=== PATIENT | male | born 1965 | race Caucasian/White ===

== ENCOUNTER 2022-02-25 12:08 | Outpatient (CLI) | payer BC, SELFPAY ==
--- NOTE | 2022-03-31 08:39 | CER_ITS ---
Date of service: 03/31/22 Time of Service: 08:39 Cardiac Event Recorder Referring Provider:: Milton Norman Indications:: Palpitations Cardiac Event Note: This is a 14-day youth nutritional monitor, ordered for palpitations. Predominant rhythm was sinus with an average heart rate of 73. Minimum was 39, maximum 146 There were very rare atrial premature beats There were very rare premature ventricular beats There was no atrial fibrillation, no high-grade AV block, no pauses greater than 3 seconds Brief Mobitz 1 second-degree AV block (Wenckebach) was noted during sleep, asymptomatic Patient symptoms were reported. These corresponded to sinus rhythm
== END 2022-02-25 12:09 | disposition home or self-care (01) ==
LOC: RT 03-10 12:08
PROVIDERS: Visit Provider Neuromusculoskeletal Medicine & OMM
DX: R00.2 Palpitations (principal)
CPT/HCPCS: 93246

== ENCOUNTER 2022-02-25 14:24 | Outpatient (CLI) | payer BC, SELFPAY ==
--- NOTE | 2022-02-25 09:00 | ETT_ITS ---
APPROVED REPORT Exam: Exercise Treadmill Patient Location: Out-Patient Room/Bed: Stress Nurse: Madelyn Marshall RN Ordering Provider:LIZ TOVAR, Contact Number: [phone] BMI: 31.37 Baseline Rhythm: Sinus Rhythm Indications: Atypical chest pain Medical History Medical History: Hypertension, prediabetes, obesity, arthritis in hip Cardiac Medications: None Allergies: NKA Cardiac Risk Factors: Hypertension, prediabetes, smoker (former), obesity, family hx Previous Cardiac Procedures: None Pretest Chest Pain Characteristics: None Exercise History: Indeterminate Physical Disabilities: None Lung Sounds: Clear to auscultation Heart Sounds: Regular Stress Test Details Test: Exercise stress testing was performed using a Jameson protocol. Rest Stress HR Resting HR Supine: 68 bpm Max Heart Rate (APMHR): 166 bpm Resting HR Standin bpm Target HR (85% APMHR): 141 bpm Max HR Achieved: 174 bpm % of APMHR: 104 Recovery HR: 99 bpm HR response to stress: Normal HR response to stress BP Resting BP Supine: 140/88 mmHg Resting BP Standin/78 mmHg Max BP: 186/88 mmHg Recovery BP: 130/72 mmHg BP response to stress: Normal blood pressure response to stress. ECG Resting ECG: Sinus Rhythm Ectopy: None Stress ECG: Sinus Tachycardia ST Change: No significant ST segment changes noted Arrhythmia: Occasional multifocal PVCs Comment: Increasing ectopy towards end of exercise Recovery ECG: Sinus Rhythm Recovery ST Change: No significant ST segment changes noted Recovery Arrhythmia: Rare PVCs Clinical Reason for Termination: Stopped by RN, 104% THR achieved Stress Symptoms: General Fatigue Exercise duration: 12 min49 sec Highest Stage Reached: Stage 5: 5.0 mph at 18% grade. Exercise capacity: 14.02 METs Winn Treadmill Score: 11.5 Rate Pressure Product: 43892 Stress ECG Conclusion 1. The resting electrocardiogram was within normal limits 2. Patient exercised on the Jameson protocol and completed a workload of 14.02 METS, stopping due to fa tigue 3. Normal heart rate and blood pressure response to exercise. The patient achieved greater than 100% of predicted heart rate for age 4. There was no electrocardiographic evidence of myocardial ischemia 5. There were no significant dysrhythmias Winn Treadmill Score is 11.5 which is Low risk. Stress Test Summary STAGE Time (mins) Speed (mph) Grade (%) HR BP SYMPTOMS METS Supine 68 140/88 Standing 87 132/78 SpO2 98% 1 3 1.7 10 113 154/78 SpO2 97% 4.6 2 6 2.5 12 129 154/80 SpO2 96% 7 3 9 3.4 14 152 SpO2 95% 10.2 4 12 4.2 16 174 SpO2 95% 12.9 1 min recovery 174 178/72 SpO2 96% 3 min recovery 119 186/88 SpO2 97% 6 min recovery 99 130/72 SpO2 98%
--- OUTSIDE RECORDS SUMMARY | 2022-02-26 14:27 | XMS_ITS ---
:1965 Author Care Team Providers Name Role Phone LIZ TOVAR Primary Care Provider [phone] Allergies Code Code System Name Reaction Severity Status Onset Shellfish Other Mild to Active Derived Moderate 1 115953 RxNorm Shrimp Other Mild to Deactivated ? Moderate NKDA ? Medications Name Status Start Date Stop Date ? ? Aerosol Holding Chamber Completed 01/16/2017 07/22/20 17 1 (one) Misc Misc: daily, as needed amitriptyline 25 mg tablet Completed 07/22/201701/27 1 (one) Tablet Tablet: qhs - at bedtime benzonatate 100 mg capsule Completed ? 07/21 buspirone 10 mg tablet Completed ? 1 buspirone 5 mg tablet Active ? Not availa ble cefpodoxime 200 mg tablet Completed 01/19/20172016 1 (one) Tablet: two times daily clonazepam 1 mg tablet Completed ? 1 hydrocodone 5 mg-acetaminophen 325 mg tablet Completed 10/10/2015 1 (one) Tablet Tablet: Every 4 to 6 hours as needed ipratropium 0.5 mg-albuterol 3 mg (2.5 mg base)/3 mL n ebulization soln Completed 01/19/2017 07/22/2017 1 (one) Vial: four times daily metoprolol succinate ER 25 mg tablet,extended release 24 hr Completed 10/10/2015 01/16/2017 1 (one) Tablet ER 24HR: daily penicillin V potassium 500 mg Completed ? tablet prednisone 10 mg tablet Completed ? 07/21/20 18 Zithromax TRI-KIRAN 500 mg tablet Completed 01/11/2007 01/14/2007 1 Tablet: Daily Problems Name Status Onset Date Source ? 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 History Melanocytic Nevus Active ? History Anxiety Disorder Active ? History Fraser's Palsy Active ? History Varicose Veins of Lower Extremity Active ? History Acute Bronchitis Unknown ? History Disorder of Nasal Cavity Active ? History Pneumonia Active ? History Disorder of Jaw Active ? History Contact Dermatitis Active ? History Hypertrophic Scar Active ? History Cough Unknown ? History Altered Bowel Function Active ? History History of Polyp of Colon Active ? Histor y Adult Health Examination Unknown ? History Procedure by Method Unknown ? History Evaluation Procedure Unknown ? History Benign Lipomatous Tumor Active ? History Acute Bronchitis Unknown ? History Removal of Device Unknown ? History Long-term Current Use of Drug Therapy Unknown ? History Procedures Date Name Performed by ? 02/13/2021 Electrocardiogram P[place]nc [place] [facility] [place] [address] [facility] [place] [address] (Work Place) 02/13/2021 XR, Chest, 2 View [facility] Hospit al Radiology (Internal) [address], [place] [address] (Work Place) 12/17/2021 Holter Monitor [facility] Cardio pulmonary [address] [place] [address] (Work Place) 12/17/2021 Exercise Stress Test [facility] [address] [place] [address] [place] [address] (Work Place) 12/18/2021 Agronomy Location Manager [facility] [address] [place] [address] [place] [address] (Work Place) 12/27/2021 Event Monitor [facility] [address] [place] [address] [place] [address] (Work Place) Results Lab Results Date Name Specimen Result Interpretation Description Value Range Status Address ? 03/08/2021 CK (Creatine S ? Cpk 138 U/L 55-170 Final [place] Kinase), U/L Country Total, Serum Hosp ital Lab (Internal) : [address] t 03/08/2021 CRP, High S ? Rcrp <0.10 mg/dL 0.10-0. Kianna l [place] Sensitivity, 30 Coun try Serum or mg/dL Hospital Lab Plasma (Internal) : [address] t 03/08/2021 Thyroid S ? Tsh 1.26 0.47-4. Final Nort h F[place], Serum u[IU]/mL 68 Country u[IU]/m Hospital Lab L (Internal) : [address] 02/13/2021 CRP, High S High Rcrp 0.42 mg/dL 0.10-0. Final [place] Sensitivity, 30 Coun try Serum or mg/dL Hospital Lab Plasma (Internal) : [address] [facility] 02/13/2021 PSA, Serum or S ? PSA Scrn 0.7 NG/mL 0.0-4.0 Final [place] Plasma NG/mL [facility] L ab (Internal) : [address] 02/13/2021 CMP, Serum or S ? g/r 78 mg/dL 74-106 Kianna l [place] Plasma mg/dL [facility] L ab (Internal) : [address] t ? ? S ? Bun 11 mg/dL 9-20 Final [place] mg/dL [facility] Hospital L ab (Internal) : [address] t ? ? S ? Crea 0.80 mg/dL 0.66-1. Final [place] 25 Country mg/dL Hospital L ab (Internal) : [address] t ? ? S ? Ca 8.7 mg/dL 8.4-10. Final [facility] 2 mg/dL [facility] L ab (Internal) : [address] t ? ? S ? Na 138 mmol/L 137-145 Final [place] mmol/L [facility] Hospital L ab (Internal) : [address] t ? ? S ? K 4.0 mmol/L 3.5-5.1 Final [place] mmol/L [facility] Hospital L ab (Internal) : [address] t ? ? S ? Cl 105 mmol/L 98-107 Final [place] mmol/L [facility] Hospital L ab (Internal) : [address] t ? ? S Low Tco2 20.0 mmol/L 22.0-30 Final Nort h .0 Country mmol/L Hospital L ab (Internal) : [address] t ? ? S ? Tp 7.0 g/dL 6.3-8.2 Final [facility] g/dL [facility] L ab (Internal) : [address] t ? ? S ? Alb 4.2 g/dL 3.5-5.0 Final [facility] g/dL [facility] L ab (Internal) : [address] t ? ? S ? Tbil 1.3 mg/dL 0.2-1.3 Final [place] mg/dL [facility] Hospital L ab (Internal) : [address] t ? ? S ? Alp 66 U/L 50-136 Final [place] U/L [facility] Hospital L ab (Internal) : [address] t ? ? S ? Alt (Sgpt) 31 U/L 21-72 Final [place] U/L [facility] Hospital L ab (Internal) : [address] t ? ? S ? Ast (Sgot) 54 U/L 17-59 Final [place] U/L [facility] L ab (Internal) : [address] 02/13/2021 CK (Creatine S High Cpk 427 U/L 55-170 Final [place] Kinase), U/L [place] Total, Serum Hosp ital Lab (Internal) : [address] 02/13/2021 Lipid Panel, S ? Chol 151 mg/dL 50-200 Kianna l [place] Serum mg/dL [facility] L ab (Internal) : [address] t ? ? S ? Trig 63 mg/dL 10-150 Final [place] mg/dL [facility] L ab (Internal) : [address] t ? ? S ? Hdl 43 mg/dL 40-60 Final [place] mg/dL [facility] L ab (Internal) : [address] t ? ? S ? Ldl 95 mg/dL 0-130 Final [place] mg/dL [facility] Hospital L ab (Internal) : [address] 02/13/2021 Troponin I, S ? Trop <0.06 NG/mL 0.00-0. Fi nal [place] Serum or 06 Country Plasma NG/mL Hospital L ab (Internal) : [address] 02/05/2018 Pathology TISS ? Report results ? Final N orth Study below [facility] Hospital L ab (Internal) : [address] 08/14/2017 Glucose, Serum S ? g/r 102 mg/dL 74-106 Fi nal [place] or Plasma mg/dL [facility] Hospital L ab (Internal) : [address] 08/14/2017 Lipid Panel, S ? Chol 182 mg/dL 50-200 Kianna l [place] Serum mg/dL [facility] Hospital L ab (Internal) : [address] ? ? S ? Trig 75 mg/dL 10-150 Final [place] mg/dL [facility] Hospital L ab (Internal) : [address] ? ? S ? Hdl 48 mg/dL 40-60 Final [place] mg/dL [facility] Hospital L ab (Internal) : [address] ? ? S ? Ldl 119 mg/dL 0-130 Final [place] mg/dL [facility] L ab (Internal) : [address] ? Venipuncture ? Location Right ? ? P _nc Primary Antecubital Care [place]: [address], [place] ? ? ? Needle 21g ? ? P_nc Prim adwoa Vacutainer Care [place]: [address], [place] ? ? ? Number of 1 ? ? P_nc P rimary Attempts Care [place]: [address], [place] ? ? ? Successful Yes ? ? P[facility]nc Primary Care [place]: [address], [place] ? ? ? Dressing Pressure ? ? P_nc Primary Band-aid Care Applied [place]: [address], [place] ? ? ? Initials hj ? ? P_nc Pr imary Care [place]: [address], [place] Past Encounters 12/17/2021 Intermittent Palpitations; Atypical Ches t Pain Liz Tovar, DO: [address] [facility] [place] [address], Ph. 02/13/2021 Atypical Chest Pain; Overweight Liz Tovar, DO: [address] [facility] [place] [address], Ph. 01/16/2021 Lipoma of Skin; Screening for Cardiovasc ular System Disease; Elevated Blood Pressure; Preventive Procedure; Overweight; Varicose Veins of Lower Extremity Liz Tovar, DO: [address] [facility] [place] [address], Ph. Social History None recorded. Vaccine List None recorded. Plan of Care Reminders Provider Appointments None ? ? recorded. Lab None ? ? recorded. Referral None ? ? recorded. Procedures None ? ? recorded. Surgeries None ? ? recorded. Imaging None ? ? recorded. Vitals 12/17/2021 03:00PM Telehealth 20 Height 181.61 cm 02/13/2021 09:20AM Acute 20 Height Weight BMI Blood Pressure 181.61 cm 103.87 kg 31.5 kg/m2 110/80 mm[Hg] 01/16/2021 11:00AM Acute 20 Height Weight BMI Blood Pressure 181.61 cm 108.41 kg 32.9 kg/m2 152/84 mm[Hg] 11/24/2018 01:00PM Acute 20 Height Weight BMI Blood Pressure 181.61 cm 110.68 kg 33.6 kg/m2 130/84 mm[Hg] 07/21/2018 03:00PM Follow Up 30 Height Weight BMI Blood Pressure 181.61 cm 121.11 kg 36.7 kg/m2 138/90 mm[Hg] 02/15/2018 Height Weight Blood Pressure 181.61 cm 124.56 kg 132/80 mm[Hg] 02/05/2018 Weight Blood Pressure 121.56 kg 134/88 mm[Hg] 01/27/2018 Weight Blood Pressure 123.83 kg 154/90 mm[Hg] 08/14/2017 Height Weight Blood Pressure 181.61 cm 110.68 kg 120/72 mm[Hg] 07/22/2017 Weight Blood Pressure 111.13 kg 120/74 mm[Hg] 01/19/2017 Blood Pressure 144/84 mm[Hg] 01/16/2017 Blood Pressure 162/100 mm[Hg] 08/18/2016 Height Weight 181.61 cm 117.71 kg 08/18/2016 Blood Pressure 122/82 mm[Hg] 10/10/2015 Height Weight Blood Pressure 180.34 cm 120.2 kg 122/80 mm[Hg] 09/17/2015 Height Weight 180.34 cm 117.03 kg 04/23/2015 Height Weight Blood Pressure 180.34 cm 117.03 kg 148/84 mm[Hg] 01/11/2007 Weight Blood Pressure 112.94 kg 120/64 mm[Hg] 12/17/2006 Weight Blood Pressure 112.49 kg 116/70 mm[Hg] 10/05/2006 Weight Blood Pressure 115.21 kg 130/84 mm[Hg]
--- OUTSIDE RECORDS SUMMARY | 2022-02-26 14:27 | XMS_ITS | Encounter Summary ---
:1965 Author Care Team Providers Name Role Phone Milton Norman DO Primary Care Provider [phone] Reason for Visit heart palpitations; Telehealth - Audio/P rohan Assessment and Plan Assessment Note Phone visit done today 1. Intermittent palpitations Palpitations. Irregular heartb eat/tachycardia. ? holter monitor - 5 days 2. Atypical chest pain Recurrence of atypical chest p ain. Coronary disease. Early SC in the family. ? CK (creatine kinase), tota l, serum ? CRP, high sensitivity, ser um or plasma ? troponin I, serum or plasm a ? exercise stress test Discussion Note: None recorded.Patient educational handouts: No information available. Plan of Care Reminders Provider Appointments None ? ? recorded. Lab CK [facility] (Creatine Kinase), 12/17/2021 Lab (Internal ) Total, Serum ? CRP, High [facility] Sensitivity, Serum or 12/17/2021 Lab (Inter nal) Plasma ? Troponin I, [facility] Serum or Plasma 12/17/2021 Lab (Internal) Referral None ? ? recorded. Procedures None ? ? recorded. Surgeries None ? ? recorded. Imaging Holter [facility] try Monitor 12/17/2021 Cardiopulmonary ? Exercise [facility] Stress Test 12/17/2021 Medications No Medications Reported Medications Administered None recorded. Vitals Height 5 ft 11.5 in Results Lab Results None recorded. Allergies Code Code System Name Reaction Severity Onset Shellfish Derived Other Mild to Moderate 0 11/23/2020 NKDA ? ? ? Problems Name Status Onset Date Source ? 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 History Melanocytic Nevus Active ? History Anxiety Disorder Active ? History Fraser's Palsy Active ? History Varicose Veins of Lower Extremity Active ? History Disorder of Nasal Cavity Active ? History Pneumonia Active ? History Disorder of Jaw Active ? History Contact Dermatitis Active ? History Hypertrophic Scar Active ? History Altered Bowel Function Active ? History History of Polyp of Colon Active ? Histor y Benign Lipomatous Tumor Active ? History Procedures Date Name Performed by ? 12/17/2021 Holter Monitor [facility] Cardio pulmonary [address] [place] [address] (Work Place) 12/17/2021 Exercise Stress Test [facility] [address] [place] [address] (Work Place) Vaccine List None recorded. Social History What is your code status? 0 Functional Status Unknown. Past Encounters 12/17/2021 Intermittent Palpitations; Atypical Ches t Pain Milton Abreu Ester, DO: [address], [place] [address], Ph. History of Present Illness ? Palpitations Reported By: Patient HPI: Location: chest, epigastrium . Quality: severe fluttering, rapid, pounding. Severity: moderate . Duration: lasts minutes, started ago, has noted for months, began on: last spring, typical duration is 1 minutes. Onset/Timing: intermittent; but episodes have increassed since being sick with the Thai viru s but not confirmed. Triggers/Context: exertional. Aggravating Fact ors: worse with activity; Noted when stretching and moving torso ; also noted rushing in ears when feels faint but not sure if. Allev iating Factors: relieved with rest; takes deep breaths and. Associated Symptoms: dizziness; When hears the rushing in his ears Notes: <div>Also complaining of int ermittent chest pressure. He also reporting that the lipomas have been b urning around them. He did do a home test and it was inconclusive. con cerned with cardiac family history. Brother had cardiac surgery at young age.</div> Note: <div>This visit was performed virtually an audio connection via phone. As such, the physical examination is necessarily limited. The risks and benefits of the use of this alternative platform were discussed with the patient and or guardian and verbal consent was obtained. My assessment and plans are based on such examination. Further evaluation, including in-person examination, may be needed depending on the response to management or today's recommendation.

Thepatient is home.

The provider is {{home in the office*}}.

The patient has been positively identified and has consented to a phone visit.
I have determined that it was clinically appropriate to deliver health care services to the patient by audio-only telephone.

The time spent in counseling and coordination of care was

Patient is receiving audio-only care due to: {{Broadband Access / Reliability Concerns Technical Barrier Other than Broadband* Patient Comfort or Preference Clinical Indication Other:}}
&l t;/div>Review of Systems: ROS as noted in the HPI Review of Systems None recorded. Physical Exam ? Notes: <div>Telephone visit as the patient does not have the ability for telehealth. No physical exam done today< /div>
== END 2022-02-25 14:44 ==
PROVIDERS: Visit Provider Neuromusculoskeletal Medicine & OMM
DX: R07.89 Other chest pain (principal)
CPT/HCPCS: 93017

== ENCOUNTER 2023-09-22 21:41 | Emergency (ER) | payer BC, SELFPAY ==
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
[2023-09-22 21:46] VITALS: BP 168/74; PULSE 91; RESP 20; TEMP 36.8; O2SAT 99
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
--- NOTE | 2023-09-23 00:11 | NUR.NOTE ---
Referral to Care Management to establish pcp and f/u after bilat ultrasound, ultrasound requisition faxed to DI for bilateral leg ultrasound, left lower extremity swelling. Patient advised to call DI scheduling 09/23/23 to make appt.Nursing Note:
--- NOTE | 2023-09-23 08:51 | NUR.NOTE ---
Addendum entered by Chelo Dubois 09/23/23 10:54: 1052 Patient transferred to ED to explain only left extremity. I explained to patient that there was no documentation or examination for the right leg and so the order can be only for the left in order for the insurance company to pay for it. He understood and will call his PCP for the right leg US. He asked about compression stockings and will also talk to his PCP about that too. Forwarded the call to [facility] Scheduling for the left leg US. Addendum entered by Chelo Dubois 09/23/23 09:18: 0914 spoke with aKleigh Bliss and explained the situation to her and she elected to have only the left extremity US to be done. Then spoke with MIRANDA Benito and relayed this information to her. She will schedule him for the left only. Original Note: Accessed pt chart to view provider note to check which extremity for US ordered and if a bilateral one was documented. None for bilateral documented, call to Kaleigh Bliss for clarification. Nursing Note:
== END 2023-09-22 23:26 | disposition home or self-care (01) ==
PROVIDERS: Emergency Provider Registered Nurse Emergency
DX: S80.12XA Contusion of left lower leg, initial encounter (principal); M77.32 Calcaneal spur, left foot; W22.8XXA Striking against or struck by other objects, initial encounter
CPT/HCPCS: 99283; 73590

== ENCOUNTER → 2025-09-21 03:42 | Outpatient (CLI) | payer BC, SELFPAY ==
--- NOTE | 2025-09-21 | ETT_ITS ---
APPROVED REPORT Exam: Exercise Treadmill Patient Location: Out-Patient Room/Bed: Stress Nurse: Татьяна Dill RN Ordering Provider:SOHAIL BRYSON, Contact Number: [phone] BMI: 29.15 Baseline Rhythm: Sinus Rhythm Indications: chest pain Medical History Medical History: arthritis, former smoker Cardiac Medications: n/a Allergies: NKA Cardiac Risk Factors: family hx, former smoker Previous Cardiac Procedures: n/a Pretest Chest Pain Characteristics: No chest pain Exercise History: Physically active Physical Disabilities: Hips Lung Sounds: Clear to auscultation Heart Sounds: Regular Stress Test Details Test: Exercise stress testing was performed using a Jameson protocol. Rest Stress HR Resting HR Supine: 70 bpm Max Heart Rate (APMHR): 162 bpm Resting HR Standin bpm Target HR (85% APMHR): 138 bpm Max HR Achieved: 162 bpm % of APMHR: 100 Recovery HR: 95 bpm HR response to stress: Normal HR response to stress BP Resting BP Supine: 130/68 mmHg Resting BP Standin/72 mmHg Max BP: 200/60 mmHg Recovery BP: 122/70 mmHg BP response to stress: Normal blood pressure response to stress. ECG Resting ECG: Sinus Rhythm Ectopy: n/a Stress ECG: Sinus Tachycardia ST Change: No significant ST segment changes noted Arrhythmia: rare PVCs Recovery ECG: Sinus Rhythm Recovery ST Change: No significant ST segment changes noted Recovery Arrhythmia: None Clinical Reason for Termination: Target HR Achieved Stress Symptoms: General Fatigue Exercise duration: 11 min46 sec Highest Stage Reached: Stage 4: 4.2 mph at 16% grade. Exercise capacity: 13.48 METs Angina Score: None Winn Treadmill Score: 11.2 Rate Pressure Product: [id number] Stress ECG Conclusion 1. Resting electrocardiogram was normal 2. Patient exercised on the Jameson protocol and completed workload of 13 METS 3. Normal heart rate and blood pressure response to exercise. The patient achieved 100% of maximal predicted heart rate for age 4. There was no electrocardiographic evidence of myocardial ischemia 5. There were no significant dysrhythmias Winn Treadmill Score is 11.2 which is Low risk. Stress Test Summary STAGE Time (mins) Speed (mph) Grade (%) HR BP SpO2 SYMPTOMS METS Supine 70 130/68 Standing 80 122/72 1 3 1.7 10 102 140/76 4.5 2 6 2.5 12 114 160/70 7 3 9 3.4 14 135 182/80 10 4 12 4.2 16 162 13 1 min recovery 138 200/60 3 min recovery 101 188/68 6 min recovery 95 122/70
== END ==
PROVIDERS: PCP Family Medicine; Visit Provider Family Medicine
DX: R07.89 Other chest pain (principal)
CPT/HCPCS: 93017